=== PATIENT | male | born 1950 | race Caucasian/White ===

== ENCOUNTER 2020-11-17 09:34 | Inpatient (IN) ==
--- NOTE | 2020-10-26 14:21 | PAT Medication Instructions ---
Medication Instructions Date of Service October 26, 2020 Home Medications Medication Instructions Recorded blood sugar diagnostic #120 ea 03/24/19 V-GO 30 #30 ea NS 12/31/19 lancets 33 gauge #400 ea 07/10/20 clobetasol 0.05 % topical cream 1 appln TOPICAL UD PRN cyanocobalamin (vitamin B-12) 1,000 mcg tablet 1,000 mcg PO QAM multivitamin 1 tab PO QAM aspirin 81 mg tablet,delayed release 81 mg PO QAM rosuvastatin 10 mg tablet 10 mg PO QPM V-GO 30 amlodipine 10 mg tablet 10 mg PO QAM lisinopril 40 mg tablet 40 mg PO QAM metformin 500 mg tablet,extended release 24 hr 1,000 mg PO BID metoprolol succinate 50 mg tablet,extended release 24 hr 50 mg PO QPM tamsulosin 0.4 mg capsule 0.8 mg PO QPM coenzyme Q10 [CoQ-10] 100 mg PO QPM hydrochlorothiazide 25 mg PO QPM insulin aspart U-100 [Novolog U-100 Insulin aspart] 12 unit SQ TIDM levothyroxine 75 mcg PO QAM STOP taking 24 hours before surgery cyanocobalamin (vitamin B-12) 1,000 mcg tablet 1,000 mcg PO QAM multivitamin 1 tab PO QAM V-GO 30 lisinopril 40 mg tablet 40 mg PO QAM metformin 500 mg tablet,extended release 24 hr 1,000 mg PO BID insulin aspart U-100 [Novolog U-100 Insulin aspart] 12 unit SQ TIDM Take morning of surgery With a small sip of water, OTHERWISE NOTHING TO EAT OR DRINK AFTER MIDNIGHT: Insulin Dependent Diabetic Patients * Test your blood sugar the morning of surgery * If Blood Sugar is GREATER THAN 150, take HALF of your regular dose of: * If Blood Sugar is LESS THAN 150, DO NOT TAKE ANY: Other Notes If you have any questions please call us at [phone] or [phone] or [phone] or [phone]
--- NOTE | 2020-10-27 10:34 | PAT Medication Instructions ---
Medication Instructions Date of Service October 27, 2020 Home Medications Medication Instructions Recorded blood sugar diagnostic #120 ea 03/24/19 V-GO 30 #30 ea NS 12/31/19 lancets 33 gauge #400 ea 07/10/20 clobetasol 0.05 % topical cream 1 appln TOPICAL UD PRN cyanocobalamin (vitamin B-12) 1,000 mcg tablet 1,000 mcg PO QAM multivitamin 1 tab PO QAM aspirin 81 mg tablet,delayed release 81 mg PO QAM rosuvastatin 10 mg tablet 10 mg PO QPM V-GO 30 #30 ea NS amlodipine 10 mg tablet 10 mg PO QAM lisinopril 40 mg tablet 40 mg PO QAM metformin 500 mg tablet,extended release 24 hr 1,000 mg PO BID metoprolol succinate 50 mg tablet,extended release 24 hr 50 mg PO QPM tamsulosin 0.4 mg capsule 0.8 mg PO QPM coenzyme Q10 [CoQ-10] 100 mg PO QPM hydrochlorothiazide 25 mg PO QPM insulin aspart U-100 [Novolog U-100 Insulin aspart] 12 unit SQ TIDM levothyroxine 75 mcg PO QAM ASK your prescriber and surgeon aspirin 81 mg tablet,delayed release 81 mg PO QAM STOP taking 2 weeks before surgery (or as soon as possible if surgery is within 2 weeks) coenzyme Q10 [CoQ-10] 100 mg PO QPM STOP taking 24 hours before surgery clobetasol 0.05 % topical cream 1 appln TOPICAL UD PRN DO NOT take the morning of surgery cyanocobalamin (vitamin B-12) 1,000 mcg tablet 1,000 mcg PO QAM multivitamin 1 tab PO QAM lisinopril 40 mg tablet 40 mg PO QAM metformin 500 mg tablet,extended release 24 hr 1,000 mg PO BID Take morning of surgery With a small sip of water, OTHERWISE NOTHING TO EAT OR DRINK AFTER MIDNIGHT: amlodipine 10 mg tablet 10 mg PO QAM levothyroxine 75 mcg PO QAM Take evening before surgery rosuvastatin 10 mg tablet 10 mg PO QPM metformin 500 mg tablet,extended release 24 hr 1,000 mg PO BID metoprolol succinate 50 mg tablet,extended release 24 hr 50 mg PO QPM tamsulosin 0.4 mg capsule 0.8 mg PO QPM hydrochlorothiazide 25 mg PO QPM insulin aspart U-100 [Novolog U-100 Insulin aspart] 12 unit SQ TIDM Insulin Dependent Diabetic Patients Test your blood sugar the morning of surgery Further instructions to be received from anesthesia regarding: V-GO 30 #30 ea NS insulin aspart U-100 [Novolog U-100 Insulin aspart] 12 unit SQ TIDM Other Notes If you have any questions please call us at [phone] or [phone] or [phone] or [phone]
--- NOTE | 2020-10-27 11:42 | Anesthesiology Consultation ---
Date of Service October 27, 2020 Assessment & Plan (1) Encounter for pre-operative examination: COVID Status: As of 10/27 assessment, patient denies travel to endemic area, known exposure/sick contacts, or symptoms of COVID19. Patient instructed that they and their household members must follow strict social distancing guidelines, wear a mask in public and avoid travel/events/gatherings for 14 days prior to surgery. Preoperative COVID19 testing to be completed prior to surgery per surgeon's arrangements. Patient made aware to self-isolate as much as possible between COVID testing and surgery. Pt is fully vaccinated. Chart Review Chart Review: Acceptable Risk for Surgery (pending PCP clearance) and Patient seen in Pre Admission Testing Teaching & Discussion Instructed NPO after midnight before surgery, except medications with 15 cc of water. Medication instructions provided according to the PAT guidelines. History Surgery Operation Date: 11/17/20 07:45 Proposed Procedures p L3-L4 Decompression Fusion Spinal Cord Monitoring - Da Newton, Height/Weight Height: 5 ft 10 in Weight: 94.2 kg Allergies Allergy/AdvReac Type Severity Reaction Status Date / Time simvastatin Allergy Unknown ACHY Verified 10/20/20 09:41 JOINTS AND MUSCLES Medications Home Medications Medication Instructions Recorded Confirmed Last Taken clobetasol 0.05 % topical cream 1 appln TOPICAL UD PRN gm 03/11/19 10/20/20 Unknown cyanocobalamin (vitamin B-12) 1,000 mcg PO QAM tab 03/11/19 10/20/20 Unknown 1,000 mcg tablet multivitamin 1 tab PO QAM 03/11/19 10/20/20 Unknown blood sugar diagnostic #120 ea 03/24/19 10/05/20 Unknown aspirin 81 mg tablet,delayed 81 mg PO QAM 06/17/19 10/20/20 Unknown release rosuvastatin 10 mg tablet 10 mg PO QPM 06/17/19 10/20/20 Unknown V-GO 30 #30 ea NS 12/31/19 10/05/20 Unknown amlodipine 10 mg tablet 10 mg PO QAM 02/28/20 10/20/20 Unknown lisinopril 40 mg tablet 40 mg PO QAM 02/28/20 10/20/20 Unknown metformin 500 mg tablet,extended 1,000 mg PO BID tab 02/28/20 10/20/20 Unknown release 24 hr metoprolol succinate 50 mg 50 mg PO QPM 02/28/20 10/20/20 Unknown tablet,extended release 24 hr tamsulosin 0.4 mg capsule 0.8 mg PO QPM cap 02/28/20 10/20/20 Unknown lancets 33 gauge #400 ea 07/10/20 10/05/20 Unknown coenzyme Q10 [CoQ-10] 100 mg PO QPM 10/20/20 10/20/20 Unknown hydrochlorothiazide 25 mg PO QPM 10/20/20 10/20/20 Unknown insulin aspart U-100 [Novolog 12 unit SQ TIDM 10/20/20 10/20/20 Unknown U-100 Insulin aspart] levothyroxine 75 mcg PO QAM 10/20/20 10/20/20 Unknown Past Medical History Medical History (Updated 10/27/20 @ 15:55 by Justin Schneider) Diabetes SEPTEMBER 2020, A1C 7.7 Enlarged prostate History of anesthesia reaction ONLY A CHILD, WITH ETHER - N/V History of DC (myocardial infarction) 2018 ANTONIO to mid-LAD. AMARIL[place] HTN (hypertension) Hyperlipidemia Spinal stenosis Thyroid disease Exercise / Class Metabolic Activity III < 4 Walking/Shop/Light housework (CURRENTLY QUITE DEBILITATED BY LUMBAR ISSUES, OTHERWISE NO SOB OR CP WITH 1 FOS) Past Family History Family History Father Cardiac disorder Mother Dementia Parkinson's disease Past Surgical History Surgical History (Updated 10/27/20 @ 15:55 by Justin Schneider) H/O umbilical hernia repair (~2016) History of appendectomy History of cataract surgery BOTH EYES History of colonoscopy History of tonsillectomy History of tooth extraction History of urologic surgery LITHOTRIPSY + TURP - SEPTEMBER 13 2020 - CANDICE ALICEA/DR BEATRICE MENDIETA S/P cardiac catheterization (01/07/19) 12/2017 ANTONIO to LAD and balloon angioplasty of second diagonal. Past Anesthesia History No Hx of Anesthesia Complications and No Family Hx of Anesthesia Complications History of PONV History of PONV (ONLY WITH ETHER CHILD) and Hx of Motion Sickness Social History Smoking Status: Former smoker tobacco type: pipe Do You Dip or Chew Tobacco: No Smoking End Date: 15-20 YRS AGO Hx Alcohol Use: Yes Alcohol type: beer Alcohol Intake Frequency Comment: 2 BOTTLES A DAY substance use type: does not use Review of Systems Pt denies any recent chest pain, shortness of breath, palpitations, cough, fever, URI, or uncontrolled acid reflux. Physical Exam Vital Signs BP: 114/71 P: 68bpm SPO2: 96% RA T: 98.3 F R: 16 ENMT Mouth: + dental restorations (one crown lower R side) and + chipped teeth (upper R side); no loose teeth Thyromental Distance: > or= 3.5 Finger Breadths Mallampati Class: I Neck normal visual inspection; neck extension not limited Respiratory normal respiratory effort, lungs clear to auscultation Cardiovascular RRR, no murmur, no edema Testing Laboratory Results PT 10.4 Seconds (9.0-12.0) 10/27/20 12: INR 1.0 (0.9-1.1) 10/27/20 12: APTT 25.1 Seconds (21.0-31.0) 10/27/20 12:01 Urine Color Yellow 10/27/20 12:01 Urine Appearance Turbid (Clear) A 10/27/20 12:01 Urine pH 5.0 (4.5-7.5) 10/27/20 12:01 Ur Specific [place] 1.031 (1.000-1.030) H 10/27/20 12:01 Urine Protein 1+ (Negative) H 10/27/20 12:01 Urine Glucose (UA) 3+ (Negative) H 10/27/20 12:01 Urine Ketones Negative (Negative) 10/27/20 12:01 Urine Nitrite Negative (Negative) 10/27/20 12:01 Ur Leukocyte Esterase 2+ (Negative) H 10/27/20 12:01 Urine WBC (Auto) >30 /hpf (0-5) H 10/27/20 12:01 Urine RBC (Auto) 10-30 /hpf (0-4) H 10/27/20 12:01 U Hyaline Cast (Auto) 1-5 /lpf (0-5) 10/27/20 12:01 U Epithel Cells (Auto) 5-10 /lpf (0-5) H 10/27/20 12:01 Urine Bacteria (Auto) Negative (Negative) 10/27/20 12:01 Blood Type A Positive 10/27/20 12:01 Antibody Screen NEGATIVE 10/27/20 12:01 10/02/20 WBC: 8.4 H/H: 14.5/41.9 PLATELETS: 237 SODIUM: 137 POTASSIUM: 3.8 CHLORIDE: 102 CO2: 29 BUN: 18 CREATININE: 0.80 GLUCOSE: 186 Electrocardiogram Date: 09/04/20 Findings: + NSR @ (75bpm) Left axis deviation. High QRS voltage may be normal variant or due to LVH. Compared with EKG of 01/08/2019, T wave inversion no longer evident in inferior or anterolateral leads. Chest X-Ray Date: 09/05/20 Findings: + NAD Echocardiogram Date: 05/10/20 EF: 60% Mild concentric hypertrophy. Normal RV size and function. Normal left atrium and right atrium. The aortic valve is moderately calcified with mild aortic stenosis with a valve area of 1.83 cm and mean gradient of 14 mmHg. Normal PA pressure. Physiologic pulmonic regurgitation. Normal aorta. Cardiac Catheterization Date: 01/07/19 The coronary arteries have significant 1 vessel disease. There is complete revascularization achieved. The percutaneous coronary intervention of the mid LAD was successful. The device included a drug eluding stent. The second percutaneous coronary intervention of the second diagonal was successful. The device used included a balloon. LVEF 38%. LV segmental wall motion shows regional wall motion abnormalities.
[2020-10-27 13:04] LABS: Partial Thromboplastin Time 25.1 Seconds (21.0-31.0); Prothrombin Time 10.4 Seconds (9.0-12.0)
[2020-10-27 13:30] LABS: Appearance Urine Turbid (Clear); Bacteria Urine Automated Negative (Negative); Bilirubin Urine Negative (Negative); Blood Urine 2+ (Negative); Color Urine Yellow; Glucose Urine UA 3+ (Negative); Ketones Urine Negative (Negative); Leukocyte Esterase Urine 2+ (Negative); Nitrite Urine Negative (Negative); Protein Urine 1+ (Negative); Specific Gravity Urine 1.031 (1.000-1.030); Urobilinogen Urine Negative (Negative); WBC Urine Automated >30 /hpf (0-5)
[~2020-11-17 09:34] MED LIST: ACETAMINOPHEN 500 MG TAB PO SCH; CeleBREX 200 MG CAP PO SCH; GABAPENTIN 300 MG CAP PO SCH; LACTATED RINGER'S 1,000 ML IV SCH; ceFAZolin 2000MG 2,000 MG/15 ML SYR IV SCH
[2020-11-17] MEDS ORDERED: MIDAZOLAM HCL 1 MG/ML 2ML VIAL ONE (10:54)
[2020-11-17] MEDS ORDERED: NEOSTIGMINE METHYLSULFATE 1 MG/ML 10ML VIAL ONE (10:54)
[2020-11-17] MEDS ORDERED: ROCURONIUM BROMIDE 10 MG/ML 5 ML VIAL IV ONE (10:54)
[2020-11-17] MEDS ORDERED: fentaNYL citrate 100 MCG/2 ML VIAL ONE ×2 (10:54→13:49)
[2020-11-17] MEDS ORDERED: GLYCOPYRROLATE 0.2 MG/ML VIAL ONE (10:54)
[2020-11-17] MEDS ORDERED: LIDOCAINE HCL 2% 2 ML VIAL/AMP(20MG/ML) INFIL ONE (10:54)
[2020-11-17] MEDS ORDERED: PROPOFOL IV EMULSION 10 MG/ML 20 ML VIAL IV ONE (10:54)
--- NOTE | 2020-11-17 11:16 | History & Physical Bridge Note ---
Date of Service November 17, 2020 History & Physical Bridge Note I have examined the patient, reviewed the History & Physical and in the interval since the performance of the History & Physical I have noted the following changes of clinical significance: no changes noted
--- NOTE | 2020-11-17 11:20 | History & Physical Report ---
Date of Service November 17, 2020 Assessment & Plan (1) Neurogenic claudication due to lumbar spinal stenosis: Admission and Anticipated Discharge Date Admission Date: L3-L4 decompression fusion History of Present Illness Chief Complaint: Back and bilateral leg pain Primary Care Provider: Kirk Mac MD This is a 70-year-old male who presents with chronic persistent back and leg pain. After failing extensive course of nonoperative care she for surgical invention. Allergies Allergy/AdvReac Type Severity Reaction Status Date / Time simvastatin Allergy Unknown ACHY Verified 11/17/20 10:22 JOINTS AND MUSCLES Home Medications Medication Instructions Recorded Confirmed Type clobetasol 0.05 % topical cream 1 appln TOPICAL UD PRN gm 03/11/19 11/17/20 History cyanocobalamin (vitamin B-12) 1,000 mcg PO QAM tab 03/11/19 11/17/20 History 1,000 mcg tablet multivitamin 1 tab PO QAM 03/11/19 11/17/20 History blood sugar diagnostic #120 ea 03/24/19 10/05/20 Rx aspirin 81 mg tablet,delayed 81 mg PO QAM 06/17/19 11/17/20 History release rosuvastatin 10 mg tablet 10 mg PO QPM 06/17/19 11/17/20 History amlodipine 10 mg tablet 10 mg PO QAM 02/28/20 11/17/20 History lisinopril 40 mg tablet 40 mg PO QAM 02/28/20 11/17/20 History metformin 500 mg tablet,extended 1,000 mg PO BID tab 02/28/20 11/17/20 History release 24 hr metoprolol succinate 50 mg 50 mg PO QPM 02/28/20 11/17/20 History tablet,extended release 24 hr tamsulosin 0.4 mg capsule 0.8 mg PO QPM cap 02/28/20 11/17/20 History lancets 33 gauge #400 ea 07/10/20 10/05/20 Rx coenzyme Q10 [CoQ-10] 100 mg PO QPM 10/20/20 11/17/20 History hydrochlorothiazide 25 mg PO QPM 10/20/20 11/17/20 History insulin aspart U-100 [Novolog 12 unit SQ TIDM 10/20/20 11/17/20 History U-100 Insulin aspart] levothyroxine 75 mcg PO QAM 10/20/20 11/17/20 History V-GO 40 #30 ea NS 11/01/20 Rx semaglutide See Rx Instructions SUBCUT 11/01/20 11/17/20 Rx .COMPLEX #1.5 ml Past Med/Surg History Medical History (Updated 11/17/20 @ 11:19 by Da Newton, DO) Diabetes SEPTEMBER 2020, A1C 7.7 Enlarged prostate History of anesthesia reaction ONLY A CHILD, WITH ETHER - N/V History of SC (myocardial infarction) 2018 ANTONIO to mid-LAD. AMARILYS [place] HTN (hypertension) Hyperlipidemia Spinal stenosis Thyroid disease Surgical History H/O umbilical hernia repair (~2016) History of appendectomy History of cataract surgery BOTH EYES History of colonoscopy History of tonsillectomy History of tooth extraction History of urologic surgery LITHOTRIPSY + TURP - SEPTEMBER 13 2020 - CANDICE ALICEA/DR BEATRICE MENDIETA S/P cardiac catheterization (01/07/19) 12/2017 ANTONIO to LAD and balloon angioplasty of second diagonal. Family History Father Cardiac disorder Mother Dementia Parkinson's disease Social History (Updated 10/15/19 @ 13:58 by Nasir Ireland PA-C) Smoking Status: Former smoker Smoking End Date: 15-20 YRS AGO; Do You Dip or Chew Tobacco: No; Hx Alcohol Use: Yes Alcohol type: beer Preferred Language: [place] Island[place] Communication Ability: Effective Relations Specialist Required: No Beliefs That Will Affect Care: None Current Living Situation: Spouse current occupational status: retired Other Information That Helps Us Care for You: No Feels Safe at Home: Yes Assistive Devices: Glasses Physical Exam Physical Exam: Patient is alert and oriented Heart regular in rhythm Lungs clear to auscultation Results & Data ([facility]) Vital Signs (Past 12 Hours) Vital Signs Temp Pulse Resp BP Pulse Ox 11/17/20 10:56 37 C 75 18 151/86 H 95
[2020-11-17] MEDS ORDERED: ePHEDrine sulfate 50 MG/ML AMP IV PRN (11:24)
[2020-11-17] MEDS ORDERED: METOCLOPRAMIDE HCL INJ 5 MG/ML 2 ML VIAL IV PRN ×2 (11:24→15:19)
[2020-11-17] MEDS ORDERED: HYDROmorphone INJ 2 MG/ML SYR/VIAL IV PRN (11:24)
[2020-11-17] MEDS ORDERED: ATROPINE SULFATE 0.1 MG/ML 10ML SYR IV PRN (11:24)
[2020-11-17] MEDS ORDERED: PROMETHAZINE HCL 12.5 MG in SODIUM CHLORIDE 0.9% 50 ML IV PRN ×2 (11:24→15:19)
[2020-11-17] MEDS ORDERED: ONDANSETRON INJ 2 MG/ML 2 ML VIAL IV PRN ×2 (11:24→15:19)
[2020-11-17] MEDS ORDERED: BUPIVACAINE/EPINEPHRINE 0.5% MPF 1:200,000 30 ML VIAL ONE (11:45)
[2020-11-17] MEDS ORDERED: FLOSEAL HEMOSTATIC MATRIX 10ML TOP ONE (13:49)
--- NOTE | 2020-11-17 13:56 | Operative Report ---
Post Operative Report Pre & Post Diagnosis Operation Date: 11/17/20 11:55 Pre-Op Diagnosis: Neurogenic Claudication due to Lumbar Spinal Stenosis Post-Op Diagnosis: Neurogenic Claudication due to Lumbar Spinal Stenosis I identified the patient and participated in the time-out.: Yes Procedure Operation Date: 11/17/20 11:55 Actual Procedures #1 lumbar decompression with bilateral medial facetectomies and foraminotomies L2-3 and L3-4. #2 posterior spinal fusion L3-L4. #3 placement posterior instrumentation L3-L4. #4 interbody fusion L3-L4 per #5 placement peek cage 13 x 26 mm at L3-L4. #6 please infuse collagen sponge master graft in the posterior gutters and I factor in the interbody space. #7 placement of locally harvested morselized autograft in the posterior lateral gutters. Surgeon Da Newton, DO Dust Collector Treater Gilson Morgan Estimated Blood Loss 125 Findings Consistent with Post-Op Diagnosis Specimens None Indications This is a 70-year-old male presents with above-mentioned diagnosis after failing since course of nonoperative care is here for the above-mentioned procedure. Description of Procedure Patient was met with identified informed consent obtained. Patient was then taken to the operative suite underwent ablation placed in a prone position the Burton table top Hussein frame. All bony prominences well-padded eyes inspected to ensure no external pressure placed upon the. This point the lumbar spine was prepped and draped in a sterile fashion. Sharp dissection with the assistance of Bovie cautery performed down to expose the lamina and transverse processes of L2-3 and L4 bilaterally. From caudal to cephalad fashion complete laminectomy of L3 partial laminectomy L2 was performed including bilateral medial facetectomies and foraminotomies addressing severe spinal stenosis as well as evidence of a large disc herniation on the right. After this was complete the decompressed pedicle screws were placed in L2-3 and L4 bilaterally with assistance of fluoroscopy the proper sized jason placed. By way of a transforaminal portion right complete discectomy was performed endplates curetted to subcortical bleeding bone and a 13 x 26 mm peek cage filled with I factor tapped in position. The rods were then locked in final position bilate rally the transverse processes of L3 and L4 burred to subcortical bleeding bone. Infuse collagen sponge master graft local autograft was placed in the posterior gutters. 15 round ANJELICA drain inserted. The incision was then closed with 1 Vicryl the fascia 2-0 Vicryl subcutaneously and 4 Monocryl for final skin closure. Steri-Strip sterile dressings placed. Patient will continue PACU stable condition. Please note spinal cord monitoring was utilized at the procedure no changes noted. Lastly Gilson Morgan was present at the entire surgery involved in patient positioning complex portions of the surgery and final skin closure. I attest to the content of the Intraoperative Record and any orders documented therein. Any exceptions are noted below.
--- NOTE | 2020-11-17 14:08 | Fluoroscopy Report ---
INTRAOPERATIVE RADIOGRAPHS CLINICAL HISTORY: L3-L4 spinal fusion. Fluoroscopy time: 18 seconds. FINDINGS: 2 spot fluoroscopic views of the lumbar spine are presented. There has been discectomy at L 3-L4 with laminectomy and posterior fusion at this level. Interpedicular screws are in place. The ort hopedic hardware appears intact. IMPRESSION: Intraoperative images from L3-L4 spinal fusion as above. Electronically signed by: Wong Henao M.D. 11/17/2020 2:07 PM
[2020-11-17] MEDS: fentaNYL citrate 100 MCG/2 ML VIAL IV PRN ×2 (14:40→14:45)
--- NOTE | 2020-11-17 14:55 | Anesthesiology Progress Note ---
Date of Service November 17, 2020 Anesthesia Post Procedure Vital Signs Vital Signs: Temp Pulse Pulse Resp BP BP Pulse Ox 11/17/20 14:50 36.4 C L 70 14 130/61 95 11/17/20 14:40 62 14 125/57 L 97 11/17/20 14:30 70 14 119/61 97 11/17/20 14:21 36.1 C L 66 14 124/60 98 11/17/20 10:56 37 C 75 18 151/86 H 95 Pain Intensity Lower Back: Pain Intensity: 5 Transfer of Care Handoff Completed per policy Notes Mental Status: alert / awake / arousable and participated in evaluation Patient Amnestic to Procedure: Yes Nausea / Vomiting: adequately controlled Pain: adequately controlled Airway Patency, RR, SpO2: stable & adequate BP & HR: stable & adequate Hydration State: stable & adequate Anesthetic Complications: no major complications apparent
[2020-11-17] MEDS ORDERED: FAMOTIDINE 20 MG TAB PO PRN (15:19)
[2020-11-17] MEDS ORDERED: LORazepam 0.5 MG/1 ML VIAL IV PRN (15:19)
[2020-11-17] MEDS ORDERED: MAGNESIUM HYDROXIDE SUSP 30 ML UDC PO PRN (15:19)
[2020-11-17] MEDS ORDERED: SOD PHOSPHATE/SOD BIPHOSPHATE ENEMA 132 ML BTL PR PRN (15:19)
[2020-11-17] MEDS ORDERED: DO NOT ADMINISTER FLU VACCINE PRN (15:19)
[2020-11-17] MEDS ORDERED: HYDROmorphone INJ 1 MG/ML SYRINGE IV PRN (15:19)
[2020-11-17] MEDS ORDERED: NALOXONE HCL 0.4 MG/1 ML VIAL/CARP IV PRN (15:19)
[2020-11-17] MEDS ORDERED: bisacodyL 10 MG SUPP PR PRN (15:19)
[2020-11-17] MEDS ORDERED: diphenhydrAMINE Capsule 25 MG CAP PO PRN (15:19)
[2020-11-17] MEDS ORDERED: ALUMINUM/MAGNESIUM SUSP 30 ML UDC PO PRN (15:19)
[2020-11-17] MEDS ORDERED: HYDROmorphone INJ 0.5 MG/0.5 ML SYR IV PRN (15:19)
[2020-11-17] MEDS ORDERED: LORazepam 0.5 MG TAB PO PRN (15:19)
[2020-11-17] MEDS ORDERED: traMADol HCL 50 MG TABLET PO PRN (15:19)
[2020-11-17] MEDS ORDERED: ACETAMINOPHEN 1,000 MG/100 ML VIAL IV PRN (15:19)
[2020-11-17] MEDS ORDERED: hydrOXYzine HCl 25 MG TAB PO PRN (15:19)
[2020-11-17] MEDS ORDERED: ONDANSETRON 4 MG OD TAB PO PRN (15:19)
[2020-11-17] MEDS ORDERED: DO NOT ADMINISTER PNEUMOCOCCAL VACCINE PRN (15:19)
[2020-11-17] MEDS ORDERED: PHARMACY GLYCEMIC MGMT CONSULT PRN (15:46)
[2020-11-17] MEDS ORDERED: INSULIN GLARGINE SOLOSTAR 100 UNITS/ML 3 ML PEN SC STA (16:02)
[2020-11-17] MEDS ORDERED: CARBOHYDRATES FOR HYPOGLYCEMIA PO PRN (16:15)
[2020-11-17] MEDS ORDERED: GLUCOSE 10 TABS/TUBE PO PRN (16:15)
[2020-11-17] MEDS ORDERED: GLUCOSE 40% GEL 15 GM TUBE PO PRN (16:15)
[2020-11-17] MEDS ORDERED: GLUCAGON FOR INJ 1 MG VIAL IM PRN (16:15)
[2020-11-17] MEDS ORDERED: DEXTROSE 50% 50 ML SYRINGE IV PRN (16:15)
--- NOTE | 2020-11-17 16:56 | Hospitalist Consultation ---
Date of Consultation November 17, 2020 Assessment & Plan (1) S/P spinal surgery: This is a 70yo with past medical history of type 2 diabetes, CAD, hypertension, dyslipidemia and other medical problems listed below who is POD#0 s/p lumbar decompression with bilateral medial facetectomies and foraminotomies L2-3 and L3-4 and posterior spinal fusion L3-L4 by Dr. Newton. POD#0 s/p lumbar decompression with bilateral medial facetectomies and foraminotomies L2-3 and L3-4 and posterior spinal fusion L3-L4 by Dr. Newton. Per ortho for pain control, wound care, anticoagulation and activities Monitor H&H (EBL 125ml, pre-op hgb 14.5 per outpatient records), continue incentive spirometry, PT/OT when appropriate (2) Type 2 diabetes mellitus: A1c 7.7 in September 2020 Hold home agents SSI while in-patient Glycemic consult placed by primary service BSG AC HS (3) CAD (coronary artery disease): History of stent in 2019. No chest pain. Continue baby aspirin, statin, beta-spring (4) Hypertension: BP lower end of normal postoperatively at 104/60 Holding hydrochlorothiazide and lisinopril -reassess volume statusand renal function in the morning Continue metoprolol succinate and amlodipine with hold parameters (5) Hypothyroidism: Continue levothyroxine (6) Recent urinary tract infection: Recently underwent urological procedure 2 months ago During preoperative testing, grew Ayla in urine and was treated with antifungal Repeat UA from November 16 without any growth (7) Dyslipidemia: Continue statin PCP: Bubba ([facility]) Dispo: Per primary service Patient seen in collaboration with Dr. Castañeda. Please see addendum. Supervising Physician Co-Signing Physician Notes Care coordinated with Balbina Harrison PA-C. Agree with above note. Patient seen and examined. Please refer to her notes for full details. Vital signs reviewed. Physical exam: General exam: Alert and oriented. Not in acute distress. CVS: S1 and S2 heard, regular rate and rhythm, no murmurs. RS: Clear to auscultation, no wheezing or crackles. ABD: Soft, bowel sounds present, nontender, no distention. PHARMACY RESIDENT: Nonfocal. Musculoskeletal s/p back surgery Dressing intact EXT: No edema, no erythema. Labs: Reviewed. Assessment and plan: s/p Back surgery management as per ortho Hx of UTI with fungal infection in the recent past worried about fungal infection UA ids positive empiric diflucan and rocephin follow cx. Hx of HTN amlosipine and B spring holding lisinopril and hctz for now will monitor and restart lsinopril and hctz in am if BP elevated. Other diagnosis and plan of care as per Balbina Harrison PA-C. Dakotah rodrigues MD. History of Present Illness Reason for Consultation: Postop med management Attending Physician: Da Newton, History of Present Illness This is a 70yo with past medical history of type 2 diabetes, CAD, hypertension, dyslipidemia and other medical problems listed below who is POD#0 s/p lumbar decompression with bilateral medial facetectomies and foraminotomies L2-3 and L3-4 and posterior spinal fusion L3-L4 by Dr. Newton. Patient is feeling well postoperatively. Minimal surgical site pain. Denies any numbness or pain in bilateral lower extremities. Denies any lightheadedness, fever, chills, headache, chest pain, shortness of breath, nausea, vomiting, abdominal pain, dysuria, diarrhea or constipation. Recently underwent urological procedure 2 months ago. During preoperative testing, grew Ayla in urine and was treated with antifungal. Repeat UA from November 16 without any growth. Patient follows with Dr. Mac with [facility]. Allergies Allergy/AdvReac Type Severity Reaction Status Date / Time simvastatin Allergy Unknown ACHY Verified 11/17/20 10:22 JOINTS AND MUSCLES Home Medications Medication Instructions Recorded Confirmed Type clobetasol 0.05 % topical cream 1 appln TOPICAL UD PRN gm 03/11/19 11/17/20 History cyanocobalamin (vitamin B-12) 1,000 mcg PO QAM tab 03/11/19 11/17/20 History 1,000 mcg tablet multivitamin 1 tab PO QAM 03/11/19 11/17/20 History blood sugar diagnostic #120 ea 03/24/19 10/05/20 Rx aspirin 81 mg tablet,delayed 81 mg PO QAM 06/17/19 11/17/20 History release rosuvastatin 10 mg tablet 10 mg PO QPM 06/17/19 11/17/20 History amlodipine 10 mg tablet 10 mg PO QAM 02/28/20 11/17/20 History lisinopril 40 mg tablet 40 mg PO QAM 02/28/20 11/17/20 History metformin 500 mg tablet,extended 1,000 mg PO BID tab 02/28/20 11/17/20 History release 24 hr metoprolol succinate 50 mg 50 mg PO QPM 02/28/20 11/17/20 History tablet,extended release 24 hr tamsulosin 0.4 mg capsule 0.4 mg PO QPM cap 02/28/20 11/17/20 History lancets 33 gauge #400 ea 07/10/20 10/05/20 Rx coenzyme Q10 [CoQ-10] 100 mg PO QPM 10/20/20 11/17/20 History hydrochlorothiazide 25 mg PO QPM 10/20/20 11/17/20 History insulin aspart U-100 [Novolog 12 unit SQ TIDM 10/20/20 11/17/20 History U-100 Insulin aspart] levothyroxine 75 mcg PO QAM 10/20/20 11/17/20 History V-GO 40 #30 ea NS 11/01/20 Rx semaglutide See Rx Instructions SUBCUT 11/01/20 11/17/20 Rx .COMPLEX #1.5 ml Patient History Medical History (Updated 11/17/20 @ 17:43 by Balbina Harrison PA-C) Diabetes SEPTEMBER 2020, A1C 7.7 Dysesthesia Enlarged prostate History of anesthesia reaction ONLY A CHILD, WITH ETHER - N/V History of KS (myocardial infarction) 2018 ANTONIO to mid-LAD. AMARILYS LAGUNAON HTN (hypertension) Hyperlipidemia Spinal stenosis Thyroid disease Surgical History (Updated 11/17/20 @ 17:12 by Balbina Harrison PA-C) H/O umbilical hernia repair (~2016) History of appendectomy History of cataract surgery BOTH EYES History of colonoscopy History of tonsillectomy History of tooth extraction History of urologic surgery LITHOTRIPSY + TURP - SEPTEMBER 13 2020 - CANDICE ALICEA/DR BEATRICE MENDIETA S/P cardiac catheterization (01/07/19) 12/2017 ANTONIO to LAD and balloon angioplasty of second diagonal. Family History Father Cardiac disorder Mother Dementia Parkinson's disease Social History (Updated 10/15/19 @ 13:58 by Nasir Ireland PA-C) Smoking Status: Former smoker Smoking End Date: 15-20 YRS AGO; Do You Dip or Chew Tobacco: No; Hx Alcohol Use: Yes Alcohol type: beer Preferred Language: Yi Communication Ability: Effective Tuber Helper Required: No Beliefs That Will Affect Care: None Current Living Situation: Spouse current occupational status: retired Other Information That Helps Us Care for You: No Feels Safe at Home: Yes Assistive Devices: Walker Review of Systems Review of Systems: At least ten systems reviewed and negative except as noted in the HPI. Physical Exam Physical Exam: General Appearance: WD/WN, vitals as above, NAD, sitting up in bed, pleasant, conversing easily Head: normocephalic, atraumatic Eyes: normal inspection, PERRL, conjunctivae normal, anicteric sclerae ENT: external ear and nose normal, oropharynx normal Neck: normal visual inspection, trachea midline, no thyromegaly Respiratory: normal respiratory effort, lungs clear to auscultation, no wheeze, rales, rhonchi. No accessory muscle use Cardiovascular: regular rate, rhythm, no murmur, normal peripheral pulses, no BLE edema Abdomen/GI: normal bowel sounds, soft, nontender, no hepatosplenomegaly Extremities/Musculoskeletal: +Lumbosacral dressing c/d/i. ANJELICA drain visualized. No cyanosis or clubbing, extremities motor strength 5/5 Neurologic: PERRL, CN's II-XI intact bilaterally and moves all extremities Psychiatric: A+Ox3, euthymic affect Skin: no rashes, normal color, warm/dry Results & Data Results & Data ([facility]) Vital Signs (Past 12 Hours) Vital Signs Temp Pulse Pulse Resp BP BP Pulse Ox 11/17/20 15:46 63 15 104/61 98 11/17/20 14:50 36.4 C L 70 14 130/61 95 11/17/20 14:40 62 14 125/57 L 97 11/17/20 14:30 70 14 119/61 97 11/17/20 14:21 36.1 C L 66 14 124/60 98 11/17/20 10:56 37 C 75 18 151/86 H 95 Diagnostic Findings Lumbar Spine X-Ray 11/17/20 11:55 INTRAOPERATIVE RADIOGRAPHS CLINICAL HISTORY: L3-L4 spinal fusion. Fluoroscopy time: 18 seconds. FINDINGS: 2 spot fluoroscopic views of the lumbar spine are presented. There has been discectomy at L3-L4 with laminectomy and posterior fusion at this level. Interpedicular screws are in place. The orthopedic hardware appears intact. IMPRESSION: Intraoperative images from L3-L4 spinal fusion as above. Electronically signed by: Wong Henao M.D. 11/17/2020 2:07 PM
[2020-11-17] MEDS: INSULIN ASPART 100 UNITS/ML 3 ML PEN SC SCH ×2 (17:57→21:13)
[2020-11-17] MEDS: SODIUM CHLORIDE 0.9% 1000ML 1,000 ML IV SCH ×2 (18:45→23:59)
[2020-11-17] MEDS: oxyCODONE HCL IR 5 MG TAB (IMMEDIATE RELEASE) PO PRN (20:03)
[2020-11-17] MEDS ORDERED: COUGH DROP (SUGAR FREE) LOZ 24 LOZ/1 BOX BUCCAL ONE (20:04)
[2020-11-17 20:09] LABS: Appearance Urine Turbid (Clear); Bacteria Urine Automated Negative (Negative); Bilirubin Urine Negative (Negative); Blood Urine 2+ (Negative); Color Urine Yellow; Glucose Urine UA 3+ (Negative); Ketones Urine Negative (Negative); Leukocyte Esterase Urine 2+ (Negative); Nitrite Urine Negative (Negative); Protein Urine 2+ (Negative); Specific Gravity Urine 1.021 (1.000-1.030); Urobilinogen Urine Negative (Negative); WBC Urine Automated >30 /hpf (0-5)
[2020-11-17] MEDS ORDERED: NON-FORMULARY MEDICATION (Coenzyme Q10 [Coq-10] 100 mg Capsule) PO SCH (21:00)
[2020-11-17] MEDS ORDERED: hydroCHLOROthiazide 25 MG TAB PO SCH (21:00)
[2020-11-17] MEDS: ceFAZolin 2000MG 2,000 MG/15 ML SYR IV SCH (21:13)
[2020-11-17] MEDS: DOCUSATE SODIUM/SENNA 50/8.6MG TAB PO SCH (21:15)
[2020-11-17] MEDS: TAMSULOSIN HCL 0.4 MG CAP PO SCH (21:15)
[2020-11-17] MEDS: METOPROLOL SUCC 50MG EXT REL TAB PO SCH (21:15)
[2020-11-17] MEDS: ROSUVASTATIN CALCIUM 10 MG TAB PO SCH (21:15)
[2020-11-17] MEDS: cefTRIAXone SODIUM 2,000 MG in DEXTROSE 5% 50 ML IV SCH (23:08)
[2020-11-17] MEDS: FLUCONAZOLE 100 MG/50 ML BAG IV SCH (23:59)
[2020-11-18] MEDS: ceFAZolin 2000MG 2,000 MG/15 ML SYR IV SCH (04:33)
[2020-11-18] MEDS: POLYETHYLENE (MIRALAX) 17 GM PACK PO SCH ×3 (04:36→17:26)
[2020-11-18] MEDS: LEVOTHYROXINE SODIUM 75 MCG TABLET PO SCH (04:36)
[2020-11-18 06:38] LABS: Basophils # (auto) 0.01 K/uL (0-0.2); Basophils % (auto) 0.1 %; Eosinophils # (auto) 0.29 K/uL (0-0.5); Eosinophils % (auto) 2.9 %; Hematocrit (blood only) 38.9 % (42-52); Hemoglobin 13.1 g/dL (14.0-18.0); Immature Granulocytes # (auto) 0.02 K/uL (0.00-0.02); Immature Granulocytes % (auto) 0.2 %; Lymphocytes % (auto) 10.1 %; Mean Corpuscular Hemoglobin 30.6 pg (25-34); Mean Corpuscular Hgb Conc 33.7 g/dL (32-36); Mean Corpuscular Volume 90.9 fL (80-100); Mean Platelet Volume 10.5 fL (7.4-10.4); Monocytes # (auto) 1.42 K/uL (0.11-0.59); Monocytes % (auto) 14.3 %; Neutrophils # (auto) 7.19 K/uL (1.4-6.5); Neutrophils % (auto) 72.4 %; Platelet Count 168 K/uL (130-400); RDW Coefficient of Variation 13.9 % (11.5-14.5); RDW Standard Deviation 46.1 fL (36.4-46.3); Red Blood Count 4.28 M/uL (4.7-6.1); White Blood Count 9.93 K/uL (4.8-10.8)
[2020-11-18 07:08] LABS: BUN Creatinine Ratio 18.7 (10-20); Calcium 8.8 mg/dl (8.5-10.1); Creatinine Clr Calc Pharmacy 102.6 ml/min; Est GFR (African American) 106.2; Est GFR (Non-African American) 91.6; Potassium 3.8 mmol/L (3.5-5.1)
[2020-11-18] MEDS: oxyCODONE HCL IR 5 MG TAB (IMMEDIATE RELEASE) PO PRN ×2 (07:44→19:51)
--- NOTE | 2020-11-18 08:20 | Orthopedic Progress Note ---
Date of Service November 18, 2020 Assessment & Plan (1) Neurogenic claudication due to lumbar spinal stenosis: Patient stable postop day #1. We will ask urology to come and take a look at our patient to be sure there are no other recommendations at this point. He will continue with physical therapy and Occupational Therapy. We will continue with GI DVT prophylaxis. He is likely to remove this over the weekend and likely discharged home early next week. Admission and Anticipated Discharge Date Admission Date: November 17, 2020 Subjective Patient is seen bedside in room 317. He has some incisional pain but no jerry radicular complaints at this point. He is having more issues with urinary retention as he has history of bladder surgery that was performed proximally [address] Hill. He had to be straight cathed overnight due to discomfort. And still feels like he has to urinate. He denies any other numbness, tingling, or paresthesias. Physical Exam Physical Exam: On exam the patient is alert and oriented. His lower extremity motor exam reveals no focal atrophy strength and sensation are grossly intact his gait is stable. His abdomen soft nontender his calves are supple nontender. Results & Data ([facility]) Vital Signs (Past 12 Hours) Vital Signs Temp Pulse Pulse Resp BP Pulse Ox 11/18/20 07:59 37.4 C 74 16 143/69 H 95 11/17/20 21:20 37 C 80 18 128/65 95
[2020-11-18] MEDS ORDERED: lisinopril 40 MG TAB PO SCH (09:00)
[2020-11-18] MEDS: CYANOCOBALAMIN 500 MCG TABLET (VITAMIN B-12) PO SCH (09:15)
[2020-11-18] MEDS: MULTIVITAMIN TAB PO SCH (09:16)
[2020-11-18] MEDS: ASPIRIN 81 MG ECTAB PO SCH (09:16)
[2020-11-18] MEDS: amLODIPine BESYLATE 5 MG TAB PO SCH (09:16)
[2020-11-18] MEDS: INSULIN ASPART 100 UNITS/ML 3 ML PEN SC SCH ×4 (09:18→21:40)
--- NOTE | 2020-11-18 10:54 | Pharmacy Report ---
Pharmacy Glycemic Short Note 2 - Date of Service November 18, 2020 - Glycemic Short BSG Results (Last 24 hours): 11/17/20 11/17/20 11/17/20 14:24 16:56 21:00 Glucose POC Glucose 263 H 261 H 219 H 11/18/20 11/18/20 06:12 08:04 Glucose 159 H POC Glucose 178 H OUTPATIENT ANTIDIABETIC REGIMEN: * V-Go 40 + 6-7 clicks per meal (12-14 units) * Metformin ER 1000 mg PO BIDM * HbA1c = 7.7% (10/02/20) ASSESSMENT: * 70 yo M admitted yesterday s/p spinal surgery. Pharmacy was consulted to assist with inpatient glycemic management. * Spoke with patient this morning. He took his V-Go pump off at bedtime on 11/16 prior to surgery which explains elevated fasting on 11/17 of 266 mg/dL. Patient received no steroids perioperatively. Postoperative BSGs were elevated yesterday: 263-261-219 mg/dL. * Gave patient 40 units of Lantus at dinner last night. Will continue Lantus as patient has no pump supplies with him. * Started Novolog based on weight/stress of three. Diet is ordered and patient is eating well. * Fasting BSG improved to 178 mg/dL this AM. Lunch BSG was 191 mg/dL * Will give another 40 units of Lantus today * No change to Novolog PLAN FOR INPATIENT GLYCEMIC CONTROL: * Hold outpatient oral diabetes medications * Basal insulin * Lantus 40 units SQ with lunch * Bolus insulin * NovoLog per scale ACHS or Q6hrs while NPO * Goal Range: Low 110 mg/dL - High 140 mg/dL * Correction Factor: 15 mg/dL/unit * Nutritional / Prandial insulin per carb ratio of 1 unit per 5 grams CHO consumed PLAN FOR DISCHARGE: * HbA1c = 7.7% which is at goal given this patient's age and comorbidities. No changes recommend at discharge. Continue to follow with Endocrinology office.
[2020-11-18] MEDS: TAMSULOSIN HCL 0.4 MG CAP PO SCH ×2 (11:00→21:40)
--- NOTE | 2020-11-18 11:06 | Hospitalist Progress Note ---
Date of Service November 18, 2020 Assessment & Plan (1) S/P spinal surgery: This is a 70yo with past medical history of type 2 diabetes, CAD, hypertension, dyslipidemia and other medical problems listed below who is POD#0 s/p lumbar decompression with bilateral medial facetectomies and foraminotomies L2-3 and L3-4 and posterior spinal fusion L3-L4 by Dr. Newton. POD#1 s/p lumbar decompression with bilateral medial facetectomies and foraminotomies L2-3 and L3-4 and posterior spinal fusion L3-L4 by Dr. Newton. Per ortho for pain control, wound care, anticoagulation and activities Monitor H&H, pre op hgb 14.5 -> 13.1 today EBL 125ml, drain output 350ml to date continue incentive spirometry, PT/OT when appropriate (2) Urinary retention: Requiring straight cath x2 Urology consulted by primary service (3) Type 2 diabetes mellitus: A1c 7.7 in September 2020 Hold home agents SSI while in-patient Glycemic consult placed by primary service BSG AC HS (4) CAD (coronary artery disease): History of stent in 2019. No chest pain. Continue baby aspirin, statin, beta-spring (5) Hypertension: BP controlled continue to hold hydrochlorothiazide and lisinopril due to dizziness with oxycodone Continue metoprolol succinate and amlodipine with hold parameters (6) Hypothyroidism: Continue levothyroxine (7) Recent urinary tract infection: Recently underwent urological procedure 2 months ago During preoperative testing, grew Ayla in urine and was treated with antifungal Repeat UA from November 16 without any growth (8) Dyslipidemia: Continue statin PCP: Bubba ([facility]) Dispo: Per primary service Admission and Anticipated Discharge Date Admission Date: November 17, 2020 Subjective Patient seen and examined. Resting in bed, no acute distress. Had issues with urinary retention overnight requiring straight cath x 2. Reports pain is well controlled however oxycodone is causing some dizziness. No chest pain or shortness of breath. Denies abdominal pain or nausea. Passing flatus, no BM yet. Physical Exam Constitutional: WD/WN, vitals as above no acute distress resting in bed Respiratory: normal respiratory effort, lungs clear to auscultation Cardiovascular: Rate/Rhythm: regular rate and regular rhythm Vessels: normal peripheral pulses Extremities: no edema Gastrointestinal (Abdomen): Percussion/Palpation: abdomen soft; abdomen nontender Musculoskeletal: s/p back surgery, drain in place draining bloody drainage, pedal pushes and pulls strong bilaterally Neurologic: no focal motor deficits Psychiatric: Orientation: alert and oriented x 3 Results & Data Results & Data ([facility]) Vital Signs (Past 12 Hours) Vital Signs Temp Pulse Resp BP Pulse Ox 11/18/20 07:59 37.4 C 74 16 143/69 H 95 Laboratory Results Short CBC 11/18/20 Range/Units 06:12 WBC 9.93 (4.8-10.8) K/uL Hgb 13.1 L (14.0-18.0) g/dL Hct 38.9 L (42-52) % Plt Count 168 (130-400) K/uL BMP 11/18/20 06:12 Sodium 139 Potassium 3.8 Chloride 105 Carbon Dioxide 31 BUN 14 Creatinine 0.75 Glucose 159 H Calcium 8.8 Urine 11/17/20 Range/Units 19:55 Urine Color Yellow Urine Appearance Turbid A (Clear) Urine pH 6.0 (4.5-7.5) Ur Specific [place] 1.021 (1.000-1.030) Urine Protein 2+ H (Negative) Urine Glucose (UA) 3+ H (Negative)
[2020-11-18] MEDS ORDERED: INSULIN GLARGINE SOLOSTAR 100 UNITS/ML 3 ML PEN SC ONE (12:45)
[2020-11-18] MEDS: ACETAMINOPHEN 500 MG TAB PO PRN (17:26)
[2020-11-18] MEDS ORDERED: CHLORASEPTIC 1.4% SOLN 180 ML BTL MT PRN (18:32)
[2020-11-18] MEDS: ROSUVASTATIN CALCIUM 10 MG TAB PO SCH (21:39)
[2020-11-18] MEDS: DOCUSATE SODIUM/SENNA 50/8.6MG TAB PO SCH (21:40)
[2020-11-18] MEDS: METOPROLOL SUCC 50MG EXT REL TAB PO SCH (21:40)
[2020-11-18] MEDS: cefTRIAXone SODIUM 2,000 MG in DEXTROSE 5% 50 ML IV SCH (23:33)
[2020-11-19] MEDS: POLYETHYLENE (MIRALAX) 17 GM PACK PO SCH ×5 (00:20→23:47)
[2020-11-19] MEDS: FLUCONAZOLE 100 MG/50 ML BAG IV SCH (00:26)
[2020-11-19] MEDS ORDERED: INSULIN ASPART 100 UNITS/ML 3 ML PEN SC SCH (04:00)
[2020-11-19 06:21] LABS: Hematocrit (blood only) 36.9 % (42-52); Hemoglobin 12.1 g/dL (14.0-18.0); Mean Corpuscular Hemoglobin 29.7 pg (25-34); Mean Corpuscular Hgb Conc 32.8 g/dL (32-36); Mean Corpuscular Volume 90.7 fL (80-100); Mean Platelet Volume 10.8 fL (7.4-10.4); Platelet Count 161 K/uL (130-400); RDW Standard Deviation 46.7 fL (36.4-46.3); Red Blood Count 4.07 M/uL (4.7-6.1); White Blood Count 9.41 K/uL (4.8-10.8)
[2020-11-19] MEDS: LEVOTHYROXINE SODIUM 75 MCG TABLET PO SCH (06:22)
[2020-11-19 07:01] LABS: Calcium 9.2 mg/dl (8.5-10.1); Creatinine Clr Calc Pharmacy 118.4 ml/min; Est GFR (African American) 112.7; Est GFR (Non-African American) 97.2; Potassium 3.4 mmol/L (3.5-5.1)
--- NOTE | 2020-11-19 08:12 | Orthopedic Progress Note ---
Date of Service November 19, 2020 Assessment & Plan (1) Neurogenic claudication due to lumbar spinal stenosis: Patient stable postop day #2. We will continue with GI DVT prophylaxis as well as pain control. We have consulted urology for further recommendations for his urinary retention. Anticipate discharge to home Friday or Friday. Admission and Anticipated Discharge Date Admission Date: November 17, 2020 Subjective Patient was seen bedside in room 317. He states he is doing better this morning. He has less pain. He still is having some urinary issues. He has urinary retention but has been able to urinate on his own at times. All of his pain is incisional. He is not having any symptoms going down the legs. He did get up and walk with physical therapy and then again with a nurse last night he seemed to tolerate this. He denies any other numbness, tingling, paresthesias. Physical Exam Physical Exam: On exam he is alert and oriented. His abdomen soft and nontender. His calves are supple nontender. His ANJELICA drains in place is holding suction he had 20 cc out on the previous shift. Strength and sensation are grossly intact. Results & Data ([facility]) Vital Signs (Past 12 Hours) Vital Signs Temp Pulse Resp BP Pulse Ox 11/19/20 07:26 36.9 C 69 16 139/74 94 11/18/20 23:27 37.1 C 84 18 109/86 95 11/18/20 21:39 85 126/69
[2020-11-19] MEDS: ASPIRIN 81 MG ECTAB PO SCH (08:16)
[2020-11-19] MEDS: CYANOCOBALAMIN 500 MCG TABLET (VITAMIN B-12) PO SCH (08:16)
[2020-11-19] MEDS: MULTIVITAMIN TAB PO SCH (08:16)
[2020-11-19] MEDS: amLODIPine BESYLATE 5 MG TAB PO SCH (08:16)
[2020-11-19] MEDS: INSULIN GLARGINE SOLOSTAR 100 UNITS/ML 3 ML PEN SC SCH (08:18)
[2020-11-19] MEDS: INSULIN ASPART 100 UNITS/ML 3 ML PEN SC SCH ×4 (08:21→21:51)
[2020-11-19] MEDS: oxyCODONE HCL IR 5 MG TAB (IMMEDIATE RELEASE) PO PRN (08:27)
--- NOTE | 2020-11-19 09:21 | Pharmacy Report ---
Pharmacy Glycemic Short Note 2 - Date of Service November 19, 2020 - Glycemic Short BSG Results (Last 24 hours): 11/18/20 11/18/20 11/18/20 12:14 16:59 21:26 Glucose POC Glucose 191 H 243 H 213 H 11/19/20 11/19/20 11/19/20 04:16 05:47 07:52 Glucose 166 H POC Glucose 211 H 184 H OUTPATIENT ANTIDIABETIC REGIMEN: * V-Go 40 + 6-7 clicks per meal (12-14 units) * Metformin ER 1000 mg PO BIDM * HbA1c = 7.7% (10/02/20) ASSESSMENT: 11/19: * Mr. Frazier received a total of 92 units of insulin yesterday * 40 units basal + 52 units bolus * BSGs were: [phone] mg/dL (uncontrolled) * Overnight check at 0400 was 211 mg/dL (uncontrolled) * Fasting increased to 184 mg/dL today (uncontrolled) * Will increase basal by 20% today * Tightened carb ratio this AM for postprandial hyperglycemia * Prefer BSG < 180 mg/dL (ideally, < 150 mg/dL) to promote wound healing and prevent postoperative infections 11/18: * 70 yo M admitted yesterday s/p spinal surgery. Pharmacy was consulted to assist with inpatient glycemic management. * Spoke with patient this morning. He took his V-Go pump off at bedtime on 11/16 prior to surgery which explains elevated fasting on 11/17 of 266 mg/dL. Patient received no steroids perioperatively. Postoperative BSGs were elevated yesterday: 263-261-219 mg/dL. * Gave patient 40 units of Lantus at dinner last night. Will continue Lantus as patient has no pump supplies with him. * Started Novolog based on weight/stress of three. Diet is ordered and patient is eating well. * Fasting BSG improved to 178 mg/dL this AM. Lunch BSG was 191 mg/dL * Will give another 40 units of Lantus today * No change to Novolog PLAN FOR INPATIENT GLYCEMIC CONTROL: * Hold outpatient oral diabetes medications * Basal insulin - increased 20% * Lantus 48 units SQ AM * Bolus insulin - tightened carb ratio * NovoLog per scale ACHS or Q6hrs while NPO * Goal Range: Low 110 mg/dL - High 140 mg/dL * Correction Factor: 15 mg/dL/unit * Nutritional / Prandial insulin per carb ratio of 1 unit per 4 grams CHO consumed PLAN FOR DISCHARGE: * HbA1c = 7.7% which is at goal given this patient's age and comorbidities. No changes recommend at discharge. Continue to follow with Endocrinology office.
--- NOTE | 2020-11-19 09:44 | Hospitalist Progress Note ---
Date of Service November 19, 2020 Assessment & Plan (1) S/P spinal surgery: This is a 70yo with past medical history of type 2 diabetes, CAD, hypertension, dyslipidemia and other medical problems listed below who is POD#0 s/p lumbar decompression with bilateral medial facetectomies and foraminotomies L2-3 and L3-4 and posterior spinal fusion L3-L4 by Dr. Newton. POD#2 s/p lumbar decompression with bilateral medial facetectomies and foraminotomies L2-3 and L3-4 and posterior spinal fusion L3-L4 by Dr. Newton. Per ortho for pain control, wound care, anticoagulation and activities Monitor H&H, pre op hgb 14.5 -> 13.1 -> 12.1 EBL 125ml, drain output 530ml to date continue incentive spirometry, PT/OT when appropriate (2) Urinary retention: Resolved Required straight cath x2 Urology consulted by primary service (3) Type 2 diabetes mellitus: A1c 7.7 in September 2020 Hold home agents SSI while in-patient Glycemic consult placed by primary service BSG AC HS (4) CAD (coronary artery disease): History of stent in 2019. No chest pain. Continue baby aspirin, statin, beta-spring (5) Hypertension: BP controlled continue to hold hydrochlorothiazide and lisinopril due to dizziness with oxycodone Continue metoprolol succinate and amlodipine with hold parameters (6) Hypothyroidism: Continue levothyroxine (7) Recent urinary tract infection: Recently underwent urological procedure 2 months ago During preoperative testing, grew Ayla in urine and was treated with antifungal UA on 11/17 suggested possible infection w/ yeast present - was placed on empiric ceftriaxone and Diflucan. Culture negative, stop ceftriaxone and Diflucan. (8) Dyslipidemia: Continue statin PCP: Bubba ([facility]) Dispo: Per primary service Thank you for this consultation. We will follow the patient with you during their hospital stay. You can reach a member of the [facility] Hospitalist Team 03/02 via the [facility] Hospitalist role in [employer]. Admission and Anticipated Discharge Date Admission Date: November 17, 2020 Subjective Patient seen and examined. Sitting up in the chair, just finished breakfast. Reporting increased incisional pain this morning and feeling "woozy". Vitals stable. Good appetite. Passing flatus, no BM. Denies abdominal pain and nausea. Urinary retention resolved. No chest pain or shortness of breath. Physical Exam Constitutional: WD/WN, vitals as above no acute distress sitting up in the chair Respiratory: normal respiratory effort, lungs clear to auscultation Cardiovascular: Rate/Rhythm: regular rate and regular rhythm Vessels: normal peripheral pulses Extremities: no edema Gastrointestinal (Abdomen): Percussion/Palpation: abdomen soft; abdomen nontender Musculoskeletal: s/p back surgery, surgical dressing stained, drain in place draining bloody drainage, strength strong and equal BLE Neurologic: no focal motor deficits Psychiatric: Orientation: alert and oriented x 3 Results & Data Results & Data ([facility]) Vital Signs (Past 12 Hours) Vital Signs Temp Pulse Resp BP Pulse Ox 11/19/20 07:26 36.9 C 69 16 139/74 94 11/18/20 23:27 37.1 C 84 18 109/86 95 11/18/20 21:39 85 126/69 Laboratory Results Short CBC 11/19/20 Range/Units 05:47 WBC 9.41 (4.8-10.8) K/uL Hgb 12.1 L (14.0-18.0) g/dL Hct 36.9 L (42-52) % Plt Count 161 (130-400) K/uL BMP 11/19/20 05:47 Sodium 138 Potassium 3.4 L Chloride 103 Carbon Dioxide 30 BUN 16 Creatinine 0.65 Glucose 166 H Calcium 9.2
[2020-11-19] MEDS ORDERED: POTASSIUM CHLORIDE CRTAB 20 MEQ TABCR PO STA (12:10)
--- NOTE | 2020-11-19 13:16 | Urology Consultation ---
Date of Consultation November 19, 2020 Assessment & Plan (1) Urinary retention: Patient status post spinal surgery due to neuropathic issues related to lumbar stenosis. Patient former of Dr. Mendieta in [place]. Approximately 2 months ago underwent a major procedure for bladder outlet obstruction with significant and severe bladder stones. Has intermittently been dealing with some issues. Has been in the recovery period. Underwent resection of the prostate with stone extraction and destruction. Patient had been found to have fungus/yeast in urine previously. Patient and patient's family have been somewhat anxious about this. Very long conversation about yeast/other urinary infections in light of history of bladder stones. With bladder stone extraction likely less of concern. Patient has been tolerating medications. Is recovering from procedure. Has increased ambulation. Is at this point voiding better. Required only a straight cath x1 for approximately 800 cc. Since then has been able to void. Has been monitoring with residuals. Patient can continue to void. Recommend a timed schedule every 3-4 hours. Patient would also benefit likely from double voiding. Waiting 3 to 5 minutes after voiding to attempt to void a second time for increased emptying. Patient should be monitored with intermittent assessment and monitoring of output including assessment with PVR with bladder scanner. As long as patient does not have a considerable increase in residual can continue voiding on his own. Patient has previously been on tamsulosin. We recommend continuing this. Would likely benefit from a finalization of the course of antibiotics/antifungal. Will likely not need a prolonged course of this. He is currently asymptomatic from a fever or significant bladder issue. Likely multifactorial due to deconditioning, delay of bowel function, mobility issues, and significant underlying bladder outlet issues with recent urologic surgery. Would recommend continue with hydration and monitoring. Can adjust medications if patient is developing worsening issues. Could also consider continuation of catheter however with patient voiding well at this point would likely benefit more from maintaining current function and monitoring for high residuals. Patient will likely need reassessment after 4 to 6 weeks. Would likely be around time patient would be undergoing further assessment for bladder outlet issues regardless. Patient's complicated medical and surgical history is reviewed and summarized above. Please see HPI in the section for further information. Coordinated with hospitalist team who were outside patient's room and discussed options moving forward. We will plan to continue with monitoring and patient time for recovery and return to function. Discussed possible neurogenic component with history of neuropathic issues from spinal stenosis. Patient has noticed some of his lower extremity issues have improved since surgery. Will likely with time and improve function noticed improvement of urinary issues as well. Patient previous records in reports were reviewed. Previous imaging which had discovered the initial anomaly was also reviewed. Patient's labs and vitals were reviewed. We will plan to monitor with plans for patient to continue with outpatient follow-up with his established urologist. (2) Neurogenic claudication due to lumbar spinal stenosis: (3) S/P spinal surgery: (4) Recent urinary tract infection: (5) BPH w urinary obs/LUTS: (6) History of bladder stone: History of Present Illness Attending Physician: Da Newton, DO History of Present Illness Consult for urinary issues with incomplete emptying and possible retention. Patient underwent major spinal surgery due to issues with lower extremity weakness and neuropathy. Patient has considerable baseline neuropathic issues. He also has a considerable urologic history during the work-up for his spinal surgery had been found to have a significant bladder outlet obstruction issue with prostate enlargement and development of significant bladder stones. Also has had issues with UTIs and fungal infections in the urine. Patient had undergone surgery and had improved and in the post surgical. Has developed some emptying issues. Was straight cathed once after catheter removal for approximately 800 cc. Since then patient has had some minor emptying issues but has been progressively getting better. Had been given an antifungal and antibiotic and is currently completing therapy. Is also on tamsulosin which he had previously been up to 0.8 mg during the management of his stone disease. Approximately 2 months ago patient underwent transurethral resection of prostate with cystolitholapaxy/destruction of stones and extraction. He has been voiding fairly well since then. Patient has mild to moderate discomfort in pelvis and groin going to back and side in waves. When patient was in retention had more significant and severe bladder pain and discomfort. Is occasionally noticing some minor burning and irritation with occasional more severe spasm after voiding. Has been tolerable. Has not been considerably worsening. And has overtime improved. Is dealing with acute issues related to the recent major surgery. Has been deconditioned from this. Has decreased mobility significantly with acute issues. Patient has not had complete return to normal bowel function. Has had some minor urinary issues in the past and did not have a considerable problem until the bladder stones were found. Likely had insidious bladder outlet obstruction with development of stones. Denies bleeding. No severe nausea or vomiting. Currently no fevers. Discussed with patient multifactorial nature of urinary issues, retention, and incomplete bladder emptying. Discussed concerns and issues. Discussed decreased mobility and trouble voiding. Discussed issues related to deconditioning and weakened state. Discussed possibility that patient had more moderate to severe issues and with the acute illness and deconditioning these issues became more prevalent and obvious. Discussed bowel function and possible issues related to decrease in function and its relation to other pelvic organs and systems. Discussed different medications, will use during hospitalization and their effect on ability to empty. Allergies Allergy/AdvReac Type Severity Reaction Status Date / Time simvastatin Allergy Unknown ACHY Verified 11/17/20 10:22 JOINTS AND MUSCLES Home Medications Medication Instructions Recorded Confirmed Type clobetasol 0.05 % topical cream 1 appln TOPICAL UD PRN gm 03/11/19 11/17/20 History cyanocobalamin (vitamin B-12) 1,000 mcg PO QAM tab 03/11/19 11/17/20 History 1,000 mcg tablet multivitamin 1 tab PO QAM 03/11/19 11/17/20 History blood sugar diagnostic #120 ea 03/24/19 10/05/20 Rx aspirin 81 mg tablet,delayed 81 mg PO QAM 06/17/19 11/17/20 History release rosuvastatin 10 mg tablet 10 mg PO QPM 06/17/19 11/17/20 History amlodipine 10 mg tablet 10 mg PO QAM 02/28/20 11/17/20 History lisinopril 40 mg tablet 40 mg PO QAM 02/28/20 11/17/20 History metformin 500 mg tablet,extended 1,000 mg PO BID tab 02/28/20 11/17/20 History release 24 hr metoprolol succinate 50 mg 50 mg PO QPM 02/28/20 11/17/20 History tablet,extended release 24 hr tamsulosin 0.4 mg capsule 0.4 mg PO QPM cap 02/28/20 11/17/20 History lancets 33 gauge #400 ea 07/10/20 10/05/20 Rx coenzyme Q10 [CoQ-10] 100 mg PO QPM 10/20/20 11/17/20 History hydrochlorothiazide 25 mg PO QPM 10/20/20 11/17/20 History insulin aspart U-100 [Novolog 12 unit SQ TIDM 10/20/20 11/17/20 History U-100 Insulin aspart] levothyroxine 75 mcg PO QAM 10/20/20 11/17/20 History V-GO 40 #30 ea NS 11/01/20 Rx semaglutide See Rx Instructions SUBCUT 11/01/20 11/17/20 Rx .COMPLEX #1.5 ml Patient History Medical History Diabetes SEPTEMBER 2020, A1C 7.7 Dysesthesia Enlarged prostate History of anesthesia reaction ONLY A CHILD, WITH ETHER - N/V History of [place] (myocardial infarction) 2018 ANTONIO to mid-LAD. [place] HTN (hypertension) Hyperlipidemia Spinal stenosis Thyroid disease Surgical History H/O umbilical hernia repair (~2016) History of appendectomy History of cataract surgery BOTH EYES History of colonoscopy History of tonsillectomy History of tooth extraction History of urologic surgery LITHOTRIPSY + TURP - SEPTEMBER 13 2020 - C[facility]ICE ALICEA/DR BEATRICE MENDIETA S/P cardiac catheterization (01/07/19) 12/2017 ANTONIO to LAD and balloon angioplasty of second diagonal. Family History Father Cardiac disorder Mother Dementia Parkinson's disease Social History Smoking Status: Former smoker Smoking End Date: 15-20 YRS AGO; Do You Dip or Chew Tobacco: No; Hx Alcohol Use: Yes Alcohol type: beer Preferred Language: Italian Communication Ability: Effective Manager [employer] Required: No Beliefs That Will Affect Care: None Current Living Situation: Spouse current occupational status: retired Other Information That Helps Us Care for You: No Feels Safe at Home: Yes Assistive Devices: Glasses and Walker Review of Systems Review of Systems: All systems reviewed & are unremarkable except as noted in HPI & below Physical Exam Physical Exam: General: Alert and oriented x 3 in no acute distress. Patient is well nourished and well kept. deconditioning from recent major surgery. HEENT: Normocephalic Atraumatic. Inspection normal. Cranial Nerves 2-12 Grossly intact. Nares are clear. Neck is supple. Normal inspection of face. Normal inspection of neck. Neurologic: No deficits on inspection. Baseline for motor function and sensory. Psychologic: Normal affect. Respiratory: Nonlabored. No use of accessory muscles. No tachypnea or dyspnea. Cardiovascular: No tachycardia Skin: Blanding and Dry. No rashes or visible lesions. Extremities: Moving without issues. No motor deficits on inspection. Slow mobility from recent surgery but improving. Lymphatics: No edema Abdomen: Soft Non-distended. No acites. No rebound or guarding. Results & Data ([facility]) Vital Signs (Past 12 Hours) Vital Signs Temp Pulse Resp BP Pulse Ox 11/19/20 07:26 36.9 C 69 16 139/74 94 PG Care Time/CCT Total # of Minutes Spent Total Time Spent with Patient: Total time spent is greater than 50% in coordination of care (as documented) at patient's floor/unit and/or counseling patient: Coding Level of Care Code 28988 Inpt Consult Level 5 Diagnoses Urinary retention R33.9 Neurogenic claudication due to lumbar spinal stenosis M48.062 S/P spinal surgery Z98.890 Recent urinary tract infection Z87.440 BPH w urinary obs/LUTS N40.1; N13.8 History of bladder stone Z87.448
[2020-11-19] MEDS: ROSUVASTATIN CALCIUM 10 MG TAB PO SCH (21:27)
[2020-11-19] MEDS: TAMSULOSIN HCL 0.4 MG CAP PO SCH (21:27)
[2020-11-19] MEDS: DOCUSATE SODIUM/SENNA 50/8.6MG TAB PO SCH (21:28)
[2020-11-19] MEDS: METOPROLOL SUCC 50MG EXT REL TAB PO SCH (21:28)
[2020-11-19] MEDS: ACETAMINOPHEN 500 MG TAB PO PRN (21:32)
[2020-11-20] MEDS: LEVOTHYROXINE SODIUM 75 MCG TABLET PO SCH (05:48)
[2020-11-20 06:40] LABS: Hematocrit (blood only) 36.1 % (42-52); Hemoglobin 12.1 g/dL (14.0-18.0); Mean Corpuscular Hemoglobin 29.7 pg (25-34); Mean Corpuscular Hgb Conc 33.5 g/dL (32-36); Mean Corpuscular Volume 88.5 fL (80-100); Mean Platelet Volume 10.5 fL (7.4-10.4); Platelet Count 163 K/uL (130-400); RDW Coefficient of Variation 13.9 % (11.5-14.5); RDW Standard Deviation 45.4 fL (36.4-46.3); Red Blood Count 4.08 M/uL (4.7-6.1)
[2020-11-20 07:15] LABS: Calcium 8.8 mg/dl (8.5-10.1); Creatinine Clr Calc Pharmacy 132.7 ml/min; Est GFR (African American) 118.1; Est GFR (Non-African American) 101.9; Potassium 3.8 mmol/L (3.5-5.1)
[2020-11-20] MEDS: INSULIN ASPART 100 UNITS/ML 3 ML PEN SC SCH ×2 (07:37→12:21)
[2020-11-20] MEDS: ACETAMINOPHEN 500 MG TAB PO PRN (07:48)
[2020-11-20] MEDS: amLODIPine BESYLATE 5 MG TAB PO SCH (09:11)
[2020-11-20] MEDS: ASPIRIN 81 MG ECTAB PO SCH (09:12)
[2020-11-20] MEDS: MULTIVITAMIN TAB PO SCH (09:12)
[2020-11-20] MEDS: CYANOCOBALAMIN 500 MCG TABLET (VITAMIN B-12) PO SCH (09:12)
[2020-11-20] MEDS: INSULIN GLARGINE SOLOSTAR 100 UNITS/ML 3 ML PEN SC SCH (09:12)
[2020-11-20] MEDS ORDERED: FLUCONAZOLE 100 MG TAB PO ONE (10:22)
--- NOTE | 2020-11-20 11:58 | Discharge Summary ---
Date of Service November 20, 2020 Admission HPI Per Admitting Provider This is a 70-year-old male who presents with chronic persistent back and leg pain. After failing extensive course of nonoperative care she for surgical invention. Principal Diagnosis Lumbar spinal stenosis with neurogenic claudication Discharge Data Allergies Allergy/AdvReac Type Severity Reaction Status Date / Time simvastatin Allergy Unknown ACHY Verified 11/17/20 10:22 JOINTS AND MUSCLES Consultations 11/17/20 15:19 Consult Hospitalist Routine 11/18/20 08:21 Consult Urology Routine Procedures Performed Operation Date: 11/17/20 11:55 Actual Procedures p L3-L4 Decompression Fusion with Insertion of Interbody, Application of Bone Morphogenetic Protein, Spinal Cord Monitoring(Not Applicable) - Da Newton DO Ordered Studies 11/17/20 11:55 FL lumbar spine 2-3V Routine Hospital Course (1) Neurogenic claudication due to lumbar spinal stenosis: Patient underwent lumbar decompression fusion tolerated so was taken to orthopedic for postoperative. Postop day 1 is up and ambulating progressed to postop day #2 on postop day #3 pain was controlled ANJELICA drain decreasing probably. Excellent strength testing. Surgically discharged home. Discharge orders instructions from the chart for further review. Total Time Total Time Spent Total Time Spent (In Minutes): 20 minutes Discharge Plan Discharge Items Patient Disposition: Home - Self-Care Reason For Visit: Spinal Stenosis, Lumbar Region with Neurogenic Discharge Diagnosis: Lumbar spinal stenosis with neurogenic claudication Activity: As commented below Non-emergency contact: Primary Care Provider Call non-emergency contact if: you have any medication questions Follow-up/Referrals: Kirk Mac MD [Primary Care Provider] - Diet: Regular Addtl Attending Provider Instructions: ACTIVITY RECOMMENDATIONS: SELF CARE INSTRUCTIONS AFTER THORACIC/LUMBAR FUSIONS 1. You may walk to your tolerance. It is good exercise for your legs and back. Expect some back and intermittent leg aches and pains. 2. You may perform "counter-top" level activities (make a sandwich, federico with a project, etc.). 3. No bending or lifting of more than 10 pounds or back twisting of any nature (roll like a log when turning in bed). 4. You may ride in a car for 20-30 minutes at a time. No driving until after your first visit with your doctor. 5. Frequent changes of position and restricting sitting to 30 minutes at a time will help limit the amount of back spasms and stiffness you may experience. 6. You may discontinue the use of ambulatory aids (cane, crutches, etc.) once your strength and confidence allow. 7. You may reducing machine operator the shower and let water strike your incision when you arrive home at least once daily. Do not take a tub bath, sit in a hot tub or go into a swimming pool until after your first recheck in the office. SPECIAL CARE INSTRUCTIONS: VERY IMPORTANT TO READ AND REVIEW A. Your surgical incision has been closed with a cosmetic suture under the skin that will dissolve in about 6 weeks. In 14 days, you can use a pair of clean scissors and cut the suture that is left outside of the skin at the ends of your incision. 1. The small skin tapes can be removed 7 days after surgery if they have not fallen off by that point. 2. You may keep the wound open to air as much as possible to promote healing after post-op day number 5 unless told otherwise by your doctor. 3. If you think the wound looks like it is becoming infected (redness or worsening drainage) and/or you are experiencing fever, chill or worsening back pain and muscle spasms, contact the office so that we may evaluate you as soon as possible. B. Complications are uncommon, but please contact us if you have any signs or symptoms of: 1. wound infection (fever higher than 102.5 degrees F, redness, separation of wound, drainage, or increasing pain from the incision) 2. blood clots in legs (pain, swelling, redness and warmth in legs) 3. urinary tract infection (fever higher than 102.5 degrees F, burning upon urination or increased frequency of urination) 4. nerve problems (inability to walk on your toes or heels, numbness, loss of bowel or bladder control) 5. any other symptoms that concern you C. Please call the office at if you have any concerns or questions about your operation or recovery. D. No smoking! Smoking drastically decreases the chance of a solid fusion. E. Do not take any anti-inflammatory medications (Indocin, Advil, Motrin, Aspirin, Naprosyn, etc.) as these may inhibit the chance of a solid fusion. Tylenol is okay to take for pain. MANAGING PAIN AFTER SPINAL SURGERY 1. Narcotic medication is intended for short-term use and will be provided for surgical pain. Surgical pain usually lasts for a period of 4-6 weeks. Narcotic medication includes Percocet, Vicodin, Darvocet, Tylenol #3 or Lortab. 2. Longer-term pain is more appropriately treated with non-narcotic medication such as Tylenol ES. 3. Muscle spasm is not appropriately treated with narcotics. Muscle relaxers such as Soma, Flexeril or Skelaxin can be used along with Tylenol ES. 4. Remember that we all live with some "aches and pains". This is not unusual or uncommon after an injury or as we get older. a. Back pain is expected and may include muscle spasms for 4 to 6 weeks after surgery. The pain should gradually improve. If the pain worsens for no apparent reason, please contact the office. b. Intermittent leg pain may also be experienced and should not be concerned about unless it worsens for no apparent reason. If so, please contact the office. 5. We will provide appropriate medication within the normal guidelines of their prescribed use. We will also be very cautious and aware of potential abuse and extended duration of patients' medication needs. a. Pain medications are for your comfort and to assist with sleep and rest so that the tissue can heal. They are not provided in order to return to normal activity and should not be used through the day. To do so or worsening pain at night can result from ongoing tissue damage and development of tolerance to the prescribed medicine. 6. Please allow 2-3 days to process refills. Prescriptions will not be mailed but must be picked up at the office. FOLLOW UP VISIT: Keep your scheduled follow-up appointment. Any questions, please call the office at . [facility] Planned Giving Officer Provider Instructions: You were started on an antifungal (Diflucan) for a possible urine infection. Take this medication (Diflucan 100mg) once a day for two days starting on 11/21. Follow up with your primary care doctor. Pending Studies at Discharge: No Stand-Alone Forms: My Qik, Smoking Cessation Medications and DC Order Prescriptions: New fluconazole [Diflucan] 100 mg tablet 100 mg PO DAILY 2 Days Qty: 2 RF: 0 oxycodone 5 mg tablet 5 mg PO Q6H PRN (Reason: pain, severe) Qty: 30 RF: 0 tramadol 50 mg tablet 50 mg PO Q6H PRN (Reason: pain, moderate) Qty: 30 RF: 0 Continued (DME) OneTouch Verio test strips strip See Dose Instructions .ROUTE .MEDSUPPLY Qty: 120 RF: 5 (DME) lancets [OneTouch Delica Lancets] 33 gauge misc See Dose Instructions [id number] .MEDSUPPLY Qty: 400 RF: 3 Ozempic 0.25 mg or 0.5 mg(2 mg/1.5 mL) pen injector See Rx Instructions subcut .COMPLEX Qty: 1.5 RF: 5 (DME) V-GO 40 Device See Rx Instructions .ROUTE .MEDSUPPLY Qty: 30 RF: 1 aspirin 81 mg tablet,delayed release (DR/EC) 81 mg PO QAM RF: 0 rosuvastatin 10 mg tablet 10 mg PO QPM RF: 0 clobetasol 0.05 % cream 1 appln topical UD PRN (Reason: Skin Irritation) RF: 0 multivitamin tablet 1 tab PO QAM RF: 0 cyanocobalamin (vitamin B-12) 1,000 mcg tablet 1,000 mcg PO QAM RF: 0 metformin 500 mg tablet extended release 24 hr 1,000 mg PO BID RF: 0 amlodipine 10 mg tablet 10 mg PO QAM RF: 0 lisinopril 40 mg tablet 40 mg PO QAM RF: 0 metoprolol succinate 50 mg tablet extended release 24 hr 50 mg PO QPM RF: 0 tamsulosin [Flomax] 0.4 mg capsule 0.4 mg PO QPM RF: 0 levothyroxine 75 mcg tablet 75 mcg PO QAM RF: 0 insulin aspart U-100 [Novolog U-100 Insulin aspart] 100 unit/mL solution 12 unit SQ TIDM RF: 0 hydrochlorothiazide 25 mg tablet 25 mg PO QPM RF: 0 coenzyme Q10 [CoQ-10] 100 mg Capsule 100 mg PO QPM RF: 0 Discharge Orders: Discharge Order (Routine); Ordered 11/20/20 Ordered By: Da Newton Admission Data Admit Date/Time: 11/17/20 14:22 Attending Provider: Da Newton Admit Provider: Da Newton Primary Care Provider: Kirk Mac Other Providers: Gayle Blunt ; Jaden Angela
--- NOTE | 2020-11-20 12:32 | Hospitalist Progress Note ---
Date of Service November 20, 2020 Assessment & Plan (1) S/P spinal surgery: This is a 70yo with past medical history of type 2 diabetes, CAD, hypertension, dyslipidemia and other medical problems listed below who is POD#0 s/p lumbar decompression with bilateral medial facetectomies and foraminotomies L2-3 and L3-4 and posterior spinal fusion L3-L4 by Dr. Newton. POD#3 s/p lumbar decompression with bilateral medial facetectomies and foraminotomies L2-3 and L3-4 and posterior spinal fusion L3-L4 by Dr. Newton. Per ortho for pain control, wound care, anticoagulation and activities Monitor H&H, pre op hgb 14.5 -> 13.1 -> 12.1 -> 12.1 EBL 125ml, drain output 590ml to date continue incentive spirometry, PT/OT when appropriate (2) Urinary retention: Resolved Required straight cath x2 Urology consulted by primary service (3) Type 2 diabetes mellitus: A1c 7.7 in September 2020 Hold home agents SSI while in-patient Glycemic consult placed by primary service BSG AC HS (4) CAD (coronary artery disease): History of stent in 2019. No chest pain. Continue baby aspirin, statin, beta-spring (5) Hypertension: BP controlled hydrochlorothiazide and lisinopril held due to dizziness with oxycodone - resume at discharge Continue metoprolol succinate and amlodipine (6) Hypothyroidism: Continue levothyroxine (7) Recent urinary tract infection: Recently underwent urological procedure 2 months ago During preoperative testing, grew Ayla in urine and was treated with antifungal UA on 11/17 suggested possible infection w/ yeast present - was placed on empiric ceftriaxone and Diflucan. Culture negative, stop IV ceftriaxone and IV Diflucan. Final culture 11/17 growing 20,000 CFU yeast not Ayla albicans/dub - will give Diflucan 100 mg p.o. x 3 days (8) Dyslipidemia: Continue statin PCP: Bubba ([facility]) Dispo: Per primary service Thank you for this consultation. We will follow the patient with you during their hospital stay. You can reach a [facility] via the [facility] role in [facility]. Admission and Anticipated Discharge Date Admission Date: November 17, 2020 Subjective Patient seen and examined. Resting in bed. Reports pain is well controlled, feeling improved from yesterday. Tolerating therapy. Urinating without difficulty, + BM Denies chest pain or shortness of breath. No abdominal pain or nausea. Physical Exam Constitutional: WD/WN, vitals as above no acute distress Resting in bed Respiratory: normal respiratory effort, lungs clear to auscultation Cardiovascular: Rate/Rhythm: regular rate and regular rhythm Vessels: normal peripheral pulses Extremities: no edema Musculoskeletal: S/p back surgery, strength strong and equal BLE Neurologic: no focal motor deficits Psychiatric: Orientation: alert and oriented x 3 Results & Data Results & Data ([facility]) Vital Signs (Past 12 Hours) Vital Signs Temp Pulse Pulse Resp BP Pulse Ox 11/20/20 08:06 37.1 C 90 16 127/74 96 11/20/20 06:54 36.9 C 84 16 135/74 97 Laboratory Results Short CBC 11/20/20 Range/Units 05:48 WBC 8.60 (4.8-10.8) K/uL Hgb 12.1 L (14.0-18.0) g/dL Hct 36.1 L (42-52) % Plt Count 163 (130-400) K/uL BMP 11/20/20 05:48 Sodium 141 Potassium 3.8 Chloride 108 H Carbon Dioxide 29 BUN 14 Creatinine 0.58 L Glucose 197 H Calcium 8.8
== END 2020-11-20 14:49 | disposition home or self-care (01) | DRG 454 ==
LOC: ASU 09:34 → 3E 14:22